=== PATIENT | female | born 1995 | race African-American/Black ===

== ENCOUNTER 2017-04-19 10:51 | Emergency (ER) | payer BC ==
[~2017-04-19] VITALS: Ht 162.6 cm; Wt 48.0 kg
[2017-04-19 11:01] VITALS: BP 134/83
[2017-04-19] MEDS ORDERED: VISCOUS LIDOCAINE 2% 15 ML UDC MM PRN (12:00)
== END 2017-04-19 12:37 | disposition home or self-care (01) ==
LOC: ER 10:51
DX: J02.9 Acute pharyngitis, unspecified (principal)
CPT/HCPCS: 99283

== ENCOUNTER 2023-05-08 06:55 | Emergency (ER) | payer SELFPAY ==
[~2023-05-08] VITALS: Ht 162.6 cm; Wt 44.0 kg
[2023-05-08 06:59] VITALS: BP 127/82; PULSE 74; RESP 16; TEMP 97.7; O2SAT 100
[2023-05-08] MEDS ORDERED: SODIUM CHLORIDE 0.9% 1,000 ML IV ONE (07:00)
[2023-05-08 07:48] LABS: CHLORIDE 108 mEq/L (98-107); INDEX HEMOLYSI 1 (1-3); INDEX ICTERIC 1 (1-4); INDEX LIPEMIC 1 (1-3); POTASSIUM 3.6 mEq/L (3.5-5.1); SODIUM 138 mEq/L (136-145)
[2023-05-08 07:57] LABS: ALANINE AMINOTRANSFERASE 19 IU/L (13-61); ALBUMIN 3.5 g/dL (3.4-5.0); ASPARTATE AMINOTRANSFERASE 16 IU/L (15-37); CALCIUM 7.8 mg/dL (8.5-10.1); CARBON DIOXIDE 26 mEq/L (21-32); CREATININE 0.8 mg/dL (0.6-1.3); GLUCOSE 89 mg/dL (70-105); NT PRO B-TYPE NATRIURETIC PEP 20 pg/mL (5-125); PROTEIN TOTAL 6.7 g/dL (6.0-8.3); UREA NITROGEN BLOOD 8 mg/dL (7-21)
[2023-05-08 07:58] LABS: TROPONIN I HIGH SENSITIVITY < 4 ng/L (<54)
[2023-05-08 08:09] LABS: HCG SCREEN NEGATIVE
[2023-05-08 08:10] LABS: BASOPHILS % 1.2 % (0.0-2.0); EOSINOPHILS % 3.6 % (0.0-5.0); HEMOGLOBIN. 12.4 g/dL (12.0-16.0); LYMPHOCYTES % 29.9 % (20.0-50.0); MEAN CORPUSCULAR HEMOGLOBIN 31.7 pg (28.0-32.0); MEAN CORPUSCULAR HGB CONC 33.5 g/dL (31.0-37.0); MEAN CORPUSCULAR VOLUME 94.5 fL (81.0-99.0); MONOCYTES % 9.5 % (2.0-8.0); NEUTROPHILS % 55.8 % (40.0-76.0); PLATELET 228 x1000/uL (130-400); RED BLOOD CELL COUNT 3.92 mill/uL (4.2-5.4); RED CELL DISTRIBUTION WIDTH 11.9 % (11.6-14.6); WHITE BLOOD COUNT 4.2 x1000/uL (4.5-11.0)
== END 2023-05-08 09:32 | disposition home or self-care (01) ==
LOC: ER 07:07
DX: R55 Syncope and collapse (principal); R53.1 Weakness; Z91.018 Allergy to other foods
CPT/HCPCS: 80053; 84703; 83880; 85025; 85379; 84484; 36415; 71045; 96360; 99284; J7030; Z7610

== ENCOUNTER 2025-03-22 17:12 | Emergency (ER) | payer BC ==
[~2025-03-22] VITALS: Ht 162.6 cm; Wt 43.9 kg
[2025-03-22 17:14] VITALS: O2SAT 99
[2025-03-22 21:06] VITALS: TEMP 36.8
[2025-03-22] MEDS ORDERED: IBUP-2029 MT (21:14)
[2025-03-22 21:42] VITALS: O2SAT 95
[2025-03-22 21:44] VITALS: BP 104/80; PULSE 73; RESP 13
[2025-03-22] MEDS: KETOROLAC 15MG/ML VIAL IM ONE (21:44)
== END 2025-03-22 21:49 | disposition home or self-care (01) ==
LOC: ER 17:12
DX: M25.561 Pain in right knee (principal)
CPT/HCPCS: 81025; 73560; 96372; 99283; J1885; Z7610